=== PATIENT | female | born 1955 | race Hispanic/Latino ===

== ENCOUNTER 2023-05-02 10:13 | Day surgery (SDC) | payer OTHER ==
[2023-05-02] MEDS: NA CHLORIDE 0.9% 1,000 ML ONE (10:35)
[2023-05-02] MEDS ORDERED: ONDANSETRON 4 MG/2 ML VIAL ONE (10:52)
[2023-05-02] MEDS ORDERED: BUPIVACAINE 0.25% PF 30 ML VIAL ONE (10:52)
[2023-05-02] MEDS ORDERED: propofoL 200 MG/20 ML VIAL IV ONE (10:52)
[2023-05-02] MEDS ORDERED: KETOROLAC 30 MG/ML INJ ONE (10:52)
[2023-05-02] MEDS ORDERED: FENTANYL CITR 100 MCG/2 ML ONE (10:52)
[2023-05-02] MEDS ORDERED: LIDOCAINE 2% MPF 5 ML VIAL ONE (10:52)
[2023-05-02] MEDS ORDERED: dexAMETHasone 10 MG/ML VIAL ONE (10:52)
[2023-05-02] MEDS ORDERED: MIDAZOLAM HCL 2 MG/2 ML INJ ONE (10:53)
[2023-05-02] MEDS: CEFAZOLIN SODIUM 1 GM/VIAL ONE (11:08)
[2023-05-02] MEDS: BUPIVACAINE 0.25% PF 10 ML VIAL ONE (11:34)
--- NOTE | 2023-05-02 11:58 | P.BOP ---
Preoperative diagnosis: left trigger thumb Postoperative diagnosis: same Primary procedure: left thumb A1 naresh release Project Financial Analyst: NONE,NONE Estimated blood loss: 1 cc Specimen: None Findings: See dictation Anesthesia: General Complications: None Implants: None Fluids & blood products: Per anesthesia record; TT: 13 mins @ 250 mmHg Transferred to: Recovery Room Condition: Good
[2023-05-02] MEDS: ONDANSETRON 4 MG/2 ML VIAL ONE (12:27)
[2023-05-02 14:16] VITALS: BP 160/74; TEMP 96.7; O2SAT 100
== END 2023-05-02 13:50 | disposition home or self-care (01) ==
LOC: OR 10:13
PROVIDERS: ATTEND Orthopaedic Surgery Sports Medicine
PROC: 0LN80ZZ Release Left Hand Tendon, Open Approach (ICD-10-PCS; principal; 2023-05-02 12:00)
DX: M65.312 Trigger thumb, left thumb (principal); I10 Essential (primary) hypertension; E11.9 Type 2 diabetes mellitus without complications; E78.5 Hyperlipidemia, unspecified; E03.9 Hypothyroidism, unspecified
CPT/HCPCS: 82947 ×2; 26055; J2704; J2001; J2250; J3010; J1100; J2405 ×2; J7030; J0690